=== PATIENT | female | born 1955 | race Caucasian/White ===

== ENCOUNTER → 2022-07-01 | Outpatient (CLI) | payer MEDICARE ==
--- NOTE | 2022-07-02 15:36 | MM ---
Reason for Exam: Screening (asymptomatic). Last mammogram was performed 5 year(s) and 10 month(s) ago. Patient History: Menarche at age 13. First Full-Term at age 30. Left ovary removed at age 40. Right ovary removed at age 40. Hysterectomy at age 40. Postmenopausal. Estrogen for 9 years, 5 months. Risk Values: Kavitha 5 year model risk: 1.8%. NCI Lifetime model risk: 6.9%. Prior Study Comparison: 04/26/2009 Bilateral Screening Mammogram, [facility]. 04/13/2012 Bilateral Screening Mammogram, [facility]. 09/17/2016 Bilateral Screening Mammogram, [facility]. Tissue Density: The breast tissue is almost entirely fat. Findings: Analyzed By CAD. There is no suspicious group of microcalcifications or new suspicious mass in either breast. Overall Assessment: Negative, BI-RAD 1 Management: Screening Mammogram of both breasts in 1 year. A clinical breast exam by your physician is recommended on an annual basis and results should be correlated with mammographic findings. Electronically signed and approved by: Roman Manzano DO
== END | disposition home or self-care (01) ==
LOC: RADMAMWWP 13:11
PROVIDERS: ATTEND Internal Medicine
DX: Z12.31 Encounter for screening mammogram for malignant neoplasm of breast (principal); Z78.0 Asymptomatic menopausal state
CPT/HCPCS: 77063; 77067

== ENCOUNTER 2022-10-09 07:30 | Day surgery (SDC) | payer MEDICARE ==
[2022-10-06 12:35] VITALS: BMI 29.6
--- NOTE | 2022-10-09 06:57 | P.GSHP ---
History of Present Illness H&P Date: 10/09/22 Chief Complaint: Sepsis The patient is a 66-year-old white female recently hospitalized with sepsis of urinary tract origin. She was found to have significant left hydronephrosis due to a 6 mm left UPJ calculus. Urine and blood cultures showed ESBL Klebsiella pneumoniae. She underwent left ureteral stent placement and has been treated with IV antibiotics. - Genitourinary (Female) Genitourinary: Denies dysuria, Denies flank pain, Denies hematuria Past Medical History Past Medical History: Atrial Fibrillation, Fibromyalgia, Hypertension, Rheumatoid Arthritis (RA) Additional Past Medical History / Comment(s): anemia-unknown cause-states following up with Dr Fan., Carlos-fib diagnosed January 2022., hx of kidney infection with sepsis., kidney stone. History of Any Multi-Drug Resistant Organisms: ESBL Date of last positivie culture/infection: 09/17/22 MDRO Source:: urine Past Surgical History: Section, Hysterectomy, Joint Replacement Additional Past Surgical History / Comment(s): total right knee., endometriosis surgery x2 Past Anesthesia/Blood Transfusion Reactions: No Reported Reaction Past Psychological History: No Psychological Hx Reported Smoking Status: Former smoker Past Alcohol Use History: Occasional Additional Past Alcohol Use History / Comment(s): quit smoking 26 yrs ago, hx of 1/2 ppd., started smoking age 22 Past Drug Use History: None Reported - Past Family History Mother Family Medical History: Cancer Additional Family Medical History / Comment(s): lung cancer Father Family Medical History: Cancer Additional Family Medical History / Comment(s): prostate cancer Medications and Allergies Home Medications Medication Instructions Recorded Confirmed Type Apixaban [Eliquis] 2.5 mg PO BID 10/06/22 10/06/22 History Apremilast [Otezla] 30 mg PO BID 10/06/22 10/06/22 History Ascorbic Acid [Vitamin C] 500 mg PO DAILY 10/06/22 10/06/22 History Cholecalciferol [Vitamin D3 (25 50 mcg PO DAILY 10/06/22 10/06/22 History Mcg = 1000 Iu)] Cranberry Fruit Extract [Cranberry] 8,400 mg PO DAILY 10/06/22 10/06/22 History Cyanocobalamin (Vitamin B-12) 1,000 mcg PO DAILY 10/06/22 10/06/22 History [Vitamin B-12] Ferrous Sulfate [Feosol] 325 mg PO DAILY 10/06/22 10/06/22 History Magnesium Oxide [Mag-Ox] 400 mg PO DAILY 10/06/22 10/06/22 History [place]-3/Dha/Epa/Fish Oil [Fish Oil 1 each PO DAILY 10/06/22 10/06/22 History 1,000 mg Softgel] PARoxetine [Paxil] 20 mg PO DAILY 10/06/22 10/06/22 History Potassium Chloride [Klor-Con M20] 20 meq PO DAILY 10/06/22 10/06/22 History Vit No.179/Iron/Folic 1 each PO DAILY 10/06/22 10/06/22 History [ Tablet] Turmeric Root Extract [Turmeric] 500 mg PO DIRECTED 10/06/22 10/06/22 History Zinc Gluconate [Zinc] 50 mg PO DAILY 10/06/22 10/06/22 History carvediloL [Coreg] 12.5 mg PO BID 10/06/22 10/06/22 History Allergies Allergy/AdvReac Type Severity Reaction Status Date / Time No Known Allergies Allergy Verified 10/06/22 11:56 Surgical - Exam - General well developed, well nourished, no distress - Respiratory normal respiratory effort - Abdomen Abdomen: soft, non tender, no guarding, no rigid, no rebound - Psychiatric oriented to time, oriented to person, oriented to place, speech is normal, memory intact Results - Imaging CT scan - abdomen: report reviewed, image reviewed Assessment and Plan Plan: Cystoscopy, left ureteral stent removal, left ureteroscopy with Holmium laser lithotripsy and possible stone basketing. The procedure has been reviewed in detail with the patient. She has been made aware of potential risks, which include anesthesia, bleeding, infection, inability to successfully remove the calculus, and ureteral injury.
[2022-10-09] MEDS ORDERED: LACTATED RINGERS 1,000 ML IV ONE ×2 (07:47→09:53)
[2022-10-09] MEDS ORDERED: ONDANSETRON 4 MG/2 ML VIAL ONE (07:54)
--- NOTE | 2022-10-09 08:03 | XR ---
EXAMINATION TYPE: XR KUB DATE OF EXAM: 10/09/2022 Comparison: None Clinical History: 66-year-old female presurgical evaluation for left-sided stone, LITHOTRIPSY WITH DR LYNN FOR 10/09/22 Findings: Left-sided ureteral stent is in place. Possible subtle 5 mm calcification along the proximal portion of the stent. Additional 4 mm calcification along the distal aspect of the stent. Suspect underlying right-sided renal calculi measuring up to 6 mm. Cholecystectomy clips. Nonobstructive bowel gas patte rn. Impression: Left-sided ureteral stent. Possible 5 mm calcification along the proximal aspect of the stent. Either a 4 mm phlebolith or stone along the distal aspect of the stent as well.
[2022-10-09] MEDS ORDERED: ONDANSETRON 4 MG/2 ML VIAL IVP ONE (08:07)
[2022-10-09] MEDS ORDERED: DEXAMETHASONE SOD PHOSPHATE 4 MG/ML 1 ML VIAL IVP ONE (08:08)
[2022-10-09] MEDS ORDERED: SCOPOLAMINE 1 MG/72 HR PATCH TRANSDERM ONE (08:26)
[2022-10-09] MEDS ORDERED: FAMOTIDINE 20 MG/2 ML VIAL IVP ONE (08:26)
[2022-10-09 08:36] LABS: Basophils # (A) 0.1 k/uL (0-0.2); Basophils % (A) 1 %; Eosinophils # (A) 0.2 k/uL (0-0.7); Eosinophils % (A) 3 %; HCT 33.4 % (34.0-46.0); HGB 11.3 gm/dL (11.4-16.0); Lymphocytes # (A) 1.7 k/uL (1.0-4.8); Lymphocytes % (A) 17 %; MCH 29.5 pg (25.0-35.0); MCHC 33.9 g/dL (31.0-37.0); MCV 87.1 fL (80.0-100.0); Mean Platelet Volume 7.9; Monocytes # (A) 0.4 k/uL (0-1.0); Monocytes % (A) 5 %; Neutrophils # (A) 7.1 k/uL (1.3-7.7); Neutrophils % (A) 74 %; Platelet Count 319 k/uL (150-450); RBC 3.84 m/uL (3.80-5.40); RDW 13.2 % (11.5-15.5); WBC 9.6 k/uL (3.8-10.6)
[2022-10-09] MEDS ORDERED: PHENYLEPHRINE-0.9% NACL SYG 1,000 MCG/10 ML SYRINGE ONE (08:59)
[2022-10-09] MEDS ORDERED: fentaNYL (PF) 50 MCG/ML 2 ML AMP ONE (08:59)
[2022-10-09] MEDS ORDERED: GLYCOPYRROLATE 0.2 MG/ML 2 ML VIAL ONE (08:59)
[2022-10-09] MEDS ORDERED: MIDAZOLAM 2 MG/2 ML VIAL ONE (08:59)
[2022-10-09] MEDS ORDERED: ePHEDrine 50 MG/ML 1 ML VIAL ONE (08:59)
[2022-10-09] MEDS ORDERED: PROPOFOL 10 MG/ML 20 ML VIAL IV ONE (08:59)
[2022-10-09] MEDS ORDERED: LIDOCAINE 2% INJ 20 MG/ML (2 ML VIAL) ONE (08:59)
--- NOTE | 2022-10-09 10:02 | FL ---
EXAMINATION TYPE: FL guidance operating room DATE OF EXAM: 10/09/2022 FLUOROSCOPY Fluoroscopy time of 1 seconds was used during urologic intervention for left ureteral calculus. 1 im age/s document/s the procedure.
[2022-10-09 10:25] VITALS: TEMP 96.8
--- NOTE | 2022-10-09 10:27 | P.OP ---
Date of Procedure: 10/09/22 Preoperative Diagnosis: Left Ureteral Calculus Postoperative Diagnosis: Same Procedure(s) Performed: Cystoscopy, left ureteral stent removal, left ureteroscopy with Holmium laser lithotripsy and stone basketing Anesthesia: SCARLETT Surgeon: Paulo Welsh Estimated Blood Loss (ml): 5 IV fluids (ml): 900 Pathology: other Condition: stable Disposition: PACU Indications for Procedure: The patient is a 66-year-old white female recently hospitalized with sepsis of urinary tract origin. She was found to have significant left hydronephrosis due to a 6 mm left UPJ calculus. Urine and blood cultures showed ESBL Klebsiella pneumoniae. She underwent left ureteral stent placement and has been treated with IV antibiotics. Operative Findings: Left proximal ureteral calculus, fragmented and removed completely. Description of Procedure: The patient was taken to the operating room and placed in the dorsolithotomy position, with legs supported in Kwaku stirrups. The external genitalia was prepped and draped sterilely. The 30 lens was used to introduce the 21-[place] Choi cystoscopic sheath through the urethra and into the bladder under direct vision. The bladder was examined in its entirety. No tumors or foreign bodies were seen. The right ureteral orifice appeared normal. The distal end of the left ureteral stent was grasped with grasping forceps and removed along with the cystoscope. The Choi Cobra flexible ureteroscope was advanced in the bladder, and the left ureteral orifice was cannulated. The ureteroscope was slowly advanced under direct vision, up to the left proximal ureteral calculus. The 272 micron Holmium laser probe was passed through the ureteroscope, and lithotripsy was performed. After fragmenting the calculus, or calculus fragments were removed using a 1.9-[place]ayan nitinol basket. Calculus fragments were saved and sent for chemical analysis. Upon completion of the procedure, the ureter was inspected. There was no evidence of ureteral trauma, and there were no residual calculus fragments. The ureteroscope was removed and the procedure was terminated. The patient tolerated the procedure well and was taken to the recovery room in stable condition. DALILA MAJOR Report: Procedure Acuity: Elective Stone Size and Location: 6 mm, left proximal ureter Ureteral Dilation: No Ureteral Access Sheath Used: No Stone Sent for Analysis: Yes All Stones/Fragments Were Removed with a Basket: Yes Complications: No Preoperative Antibiotics Given: Yes Stent Placed: No Discharge Medications: None
[2022-10-09 10:42] VITALS: RESP 16
[2022-10-09 11:56] VITALS: BP 147/68; PULSE 89
== END 2022-10-09 11:56 | disposition home or self-care (01) ==
LOC: OR 07:30
PROVIDERS: ATTEND Urology
DX: N13.2 Hydronephrosis with renal and ureteral calculous obstruction (principal); I48.91 Unspecified atrial fibrillation; M79.7 Fibromyalgia; I10 Essential (primary) hypertension; F10.90 Alcohol use, unspecified, uncomplicated; M06.9 Rheumatoid arthritis, unspecified; Z90.710 Acquired absence of both cervix and uterus; Z98.890 Other specified postprocedural states; Z98.891 History of uterine scar from previous surgery; Z87.891 Personal history of nicotine dependence; Z80.1 Family history of malignant neoplasm of trachea, bronchus and lung; Z80.42 Family history of malignant neoplasm of prostate; Z79.01 Long term (current) use of anticoagulants; Z79.899 Other long term (current) drug therapy
CPT/HCPCS: 85025; 82365; 74018; 52353; C1769; J2250; J1100; J0690; J2405; J3010; J2370; J2704; J2001

== ENCOUNTER → 2023-01-26 | Outpatient (CLI) | payer MEDICARE ==
[2023-01-26 16:20] LABS: Anion Gap 11.1 mmol/L (10.00-18.00); Carbon Dioxide 27.9 mmol/L (20.0-27.5); Potassium 4.8 mmol/L (3.5-5.5)
[2023-01-26 17:01] LABS: Basophils # (A) 0.03 X 10*3/uL (0.00-0.10); Basophils % (A) 0.4 %; Eosinophils # (A) 0.12 X 10*3/uL (0.04-0.35); Eosinophils % (A) 1.6 %; HCT 36.5 % (37.2-46.3); HGB 11.6 g/dL (12.0-15.0); Immature Grans, Automated 0.3 %; Lymphocytes # (A) 1.66 X 10*3/uL (0.90-5.00); Lymphocytes % (A) 21.6 %; MCH 28.8 pg (27.0-32.0); MCHC 31.8 g/dL (32.0-37.0); MCV 90.6 fL (80.0-97.0); Mean Platelet Volume 10.7 fL (9.5-12.2); Monocytes # (A) 0.58 X 10*3/uL (0.20-1.00); Monocytes % (A) 7.6 %; NRBC Per 100 WBC 0 /100 WBCS (0.0-0.0); Neutrophils # (A) 5.26 X 10*3/uL (1.80-7.70); Neutrophils % (A) 68.5 %; Platelet Count 247 X 10*3/uL (140-440); RBC 4.03 X 10*6/uL (4.10-5.20); RDW 13.1 % (11.5-14.5); WBC 7.67 X 10*3/uL (4.50-10.00)
== END | disposition home or self-care (01) ==
LOC: LABPAT 11:45
PROVIDERS: ATTEND Orthopaedic Surgery
DX: Z01.812 Encounter for preprocedural laboratory examination (principal); M75.42 Impingement syndrome of left shoulder
CPT/HCPCS: 80051; 85025

== ENCOUNTER 2023-02-02 10:41 | Day surgery (SDC) | payer MEDICARE ==
--- NOTE | 2023-02-01 13:09 | HP ---
HISTORY AND PHYSICAL DATE OF SURGERY: 02/02/2023 HISTORY OF PRESENT ILLNESS: Maikol Alexander is a 67-year-old patient seen with progressive left shoulder pain. We discussed options for treatment. She elected to proceed with left shoulder arthroscopy. Consent regarding the procedure was obtained. PAST MEDICAL HISTORY: Hypertension, [id number] diabetes. PAST SURGICAL HISTORY: Knee arthroscopy. DAILY MEDICATIONS: Eliquis. ALLERGIES: None. SOCIAL HISTORY: She denies tobacco use. PHYSICAL EVALUATION OF LEFT SHOULDER: Flexion is 90 degrees, abduction is 80 degrees. External rotation is 40 degrees with pain and weakness. Tenderness along the anterolateral rotator cuff area. Impingement sign is positive at 80 degrees. Drop-arm sign is positive. Distal neurovascular exam is intact. RADIOGRAPHS: Left shoulder revealed a type 2 acromion, moderate acromioclavicular joint osteoarthritis and cystic changes of the tuberosity. The left shoulder MRI revealed rotator cuff tear, partial biceps tear, labral tear, and moderate acromioclavicular joint osteoarthritis. IMPRESSION: 1. Left shoulder impingement with rotator cuff tear. 2. Left shoulder partial long head biceps tendon tear. 3. Left shoulder labral tear. 4. Left shoulder acromioclavicular joint osteoarthritis. 5. Hypertension. 6. Btu-vmbywsl-ghrbfmkak diabetes. PLAN: Left shoulder arthroscopy with subacromial decompression, arthroscopic rotator cuff repair, biceps tendon release, Dori procedure and debridement. MMODL / IJN: [id number] /
[~2023-02-02 10:41] MED LIST: ACETAMINOPHEN TAB 500 MG TAB PO PRN; DEXAMETHASONE SOD PHOSPHATE 4 MG/ML 1 ML VIAL IV ONE; HYDROmorphone 0.5 MG/0.5 ML SYRINGE IVP PRN; LACTATED RINGERS 1,000 ML IV SCH; MELOXICAM 7.5 MG TAB PO PRN; MIDAZOLAM 2 MG/2 ML VIAL IV PRN; ONDANSETRON 4 MG/2 ML VIAL IVP ONE; TRANEXAMIC ACID IN NACL,ISO-OS 1,000 MG in SALINE 1 100ML.BAG IVPB PRN
[2023-02-02 11:12] VITALS: RESP 16; TEMP 97.5
[2023-02-02 11:21] LABS: Glucose,Whole Blood 125 mg/dL (70-110)
[2023-02-02] MEDS ORDERED: fentaNYL (PF) 50 MCG/ML 2 ML AMP IVP ONE (11:47)
[2023-02-02] MEDS ORDERED: LIDOCAINE 2% INJ 20 MG/ML (2 ML VIAL) ONE (12:30)
[2023-02-02] MEDS ORDERED: ePHEDrine 50 MG/ML 1 ML VIAL ONE (12:30)
[2023-02-02] MEDS ORDERED: PROPOFOL 10 MG/ML 20 ML VIAL IV ONE (12:30)
[2023-02-02] MEDS ORDERED: MIDAZOLAM 2 MG/2 ML VIAL ONE (12:30)
[2023-02-02] MEDS ORDERED: ROPIVACAINE 5 MG/ML 30 ML VIAL ONE (12:30)
[2023-02-02] MEDS ORDERED: fentaNYL (PF) 50 MCG/ML 2 ML AMP ONE (12:30)
[2023-02-02] MEDS ORDERED: LIDOCAINE 4% LTA KIT (4 ML) TOPICAL ONE (12:30)
[2023-02-02] MEDS ORDERED: SUCCINYLCHOLINE CHLORIDE 200 MG/10 ML VIAL IV ONE (12:30)
[2023-02-02] MEDS ORDERED: LACTATED RINGERS 1,000 ML IV ONE (14:01)
--- NOTE | 2023-02-02 14:08 | P.ANPRN ---
Procedure Note - Anesthesia - Nerve Block Performed Left Interscalene Single Time Out Performed: Yes ([id number]) Date of Procedure: 02/02/23 Procedure Start Time: 11:47 Procedure Stop Time: 11:52 Location of Patient: PreOp Indication: Acute Post-Operative Pain, Requested by Surgeon Specifically requested for management of pain by DrAlicja: Jason Mack Sedation Type: Sedate with meaningful contact maintained Preparation: Sterile Prep Position: Supine Catheter: None Needle Types: Pajunk Needle Gauge: 21 Ultrasound used to visualize needle placement: Yes Ultrasound used to observe medication spread: Yes Injectate: 0.5% Ropivacaine (see comment for volume) (30cc) Blood Aspirated: No Pain Paresthesia on Injection Noted: No Resistance on Injection: Normal Image Stored and Saved: Yes Events: Uneventful and Well Tolerated
--- NOTE | 2023-02-02 14:33 | P.OP ---
Date of Procedure: 02/02/23 Preoperative Diagnosis: Left shoulder impingement Postoperative Diagnosis: 1. Left shoulder rotator cuff tear 2. Left shoulder impingement 3. Left shoulder acromioclavicular joint osteoarthritis 4. Left shoulder partial long head biceps tendon tear Procedure(s) Performed: 1. Left shoulder arthroscopic rotator cuff repair 2. Left shoulder arthroscopic subacromial decompression 3. Left shoulder arthroscopic Dori procedure 4. Left shoulder arthroscopic biceps tenotomy Implants: 4Arthrex 5.5 swivel lock anchors Anesthesia: GETA, regional (Interscalene block) Surgeon: Jason Mack Rice Drier Operator #1: Randy Ordonez Estimated Blood Loss (ml): 7 Pathology: none sent Condition: stable Disposition: PACU Indications for Procedure: 67-year-old patient seen with progressive left shoulder pain. After having treatment options discussed, she elected to proceed with arthroscopy Operative Findings: See description of procedure Description of Procedure: Patient underwent an interscalene block by department of anesthesia. The patient was then taken to the operative suite. The patient underwent a general anesthetic by the department of anesthesia. The patient was placed into a lateral position and secured. There was appropriate padding of the bony prominence. Left shoulder was then prepped and draped in normal sterile orthopedic fashion. We placed the extremity in 10 pounds of longitudinal traction. A posterior incision was now made for a posterior working portal site. The trocar and cannula were inserted into the glenohumeral joint. Arthroscopy was initiated. Spinal needle was now inserted anteriorly, to ascertain the anterior working portal site. An incision was now made in that area, a trocar was inserted followed by a probe. There was significant partial tearing of the long head biceps tendon. There were grade 1/2 chondromalacia changes in the central area of the glenoid fossa without significant tears. The labrum was probed and was found to be stable. I performed an arthroscopic biceps tenotomy. The residual labrum was again probed and was found to be stable. Instruments now removed from glenohumeral joint. Utilizing the posterior working portal site, the trocar and cannula were inserted into the subacromial space. Arthroscopy initiated. I made an incision 2 fingerbreadths lateral to the acromion. I introduced my trocar followed by my ArthroCare ablator. I now began ablating thick subacromial bursal tissue, which exposed the undersurface of the anterior acromion. There was diminished subacromial space. There was a very prominent anterior acromion. A motorized bur was introduced and a subacromial decompression was performed. I also excised some osteophytes off the inferior aspect of the distal clavicle. The AC joint was visualized and noted to be fairly arthritic. The motorized bur was introduced in the anterior portal site and a Dori procedure was performed without difficulty, decompressing the AC joint nicely. I turned my attention to the rotator cuff. There was a 2.53 cm rotator cuff tear. I debrided the margins getting down to stable tendon tissue. The defect measured approximately 3 cm and was freely mobile over the footprint. I introduced my motorized bur and abraded the footprint area, getting some petechial bleeding. I now made an accessory portal site off the lateral aspect of the acromion. I punched 2 holes medial for medial row fixation with the assistance of Julius LEA carefully tapping the punch with a mallet as I held the punch and the camera. I now introduced both anchors into the pre-punched holes and Julius LEA tapped them with the mallet as I held anchors and the camera. Julius LEA now screwed the anchors in place a while I held the anchor guide and camera. All 8 limbs of suture were now passed through good bites of rotator cuff tendon. I now punched 2 holes for lateral row fixation again I held the punch and camera while Julius LEA used a mallet to tap in the punch. We now passed sutures through both anchors and individually I introduced the anchors into the pre- punch holes I held the anchor guide in position with one hand holding the camera with the other hand while Julius LEA tensioned the sutures and screwed in the anchors one at a time. All residual suture limbs were now clipped. We had good compression of the tendon along the entire footprint. Instruments now removed from the portal sites. All portal sites were approximated with nylon suture. Sterile dressings were applied followed by a shoulder immobilizer. Randy LEA assisted in this complex case. The patient was awakened, transferred to a bed, and taken to recovery in stable condition.
[2023-02-02 15:59] VITALS: BP 173/80; PULSE 71
== END 2023-02-02 16:23 | disposition home or self-care (01) ==
LOC: OR 10:41
PROVIDERS: ATTEND Orthopaedic Surgery
DX: M75.102 Unspecified rotator cuff tear or rupture of left shoulder, not specified as traumatic (principal); G89.18 Other acute postprocedural pain; M19.012 Primary osteoarthritis, left shoulder; M75.42 Impingement syndrome of left shoulder; S46.112A Strain of muscle, fascia and tendon of long head of biceps, left arm, initial encounter; I10 Essential (primary) hypertension; E11.9 Type 2 diabetes mellitus without complications; Z79.01 Long term (current) use of anticoagulants; Z98.890 Other specified postprocedural states
CPT/HCPCS: 29827; 29826; 29824; 64415; J2250; J1100; J0690; J2405; J3010; 76942

== ENCOUNTER → 2023-08-25 | Outpatient (CLI) | payer MEDICARE ==
[2023-08-25 15:52] LABS: Basophils # (A) 0.03 X 10*3/uL (0.00-0.10); Basophils % (A) 0.4 %; Eosinophils # (A) 0.18 X 10*3/uL (0.04-0.35); Eosinophils % (A) 2.7 %; HCT 40.1 % (37.2-46.3); Lymphocytes # (A) 1.57 X 10*3/uL (0.90-5.00); Lymphocytes % (A) 23.3 %; MCH 29.1 pg (27.0-32.0); MCHC 32.4 d/dL (32.0-37.0); MCV 89.7 FL (80.0-97.0); Mean Platelet Volume 10.6 FL (9.5-12.2); Monocytes # (A) 0.48 X 10*3/uL (0.20-1.00); Monocytes % (A) 7.1 %; NRBC Per 100 WBC 0 X 10*3/uL (0.00-0.01); Neutrophils # (A) 4.47 X 10*3/uL (1.80-7.70); Neutrophils % (A) 66.2 %; Platelet Count 285 X 10*3/uL (140-440); RBC 4.47 X 10*6/uL (4.10-5.20); RDW 13.8 % (11.5-14.5); WBC 6.75 X 10*3/uL (4.50-10.00)
[2023-08-25 16:00] LABS: ALT 18 U/L (8-44); AST 17 U/L (13-35); Albumin 4.9 d/dL (3.8-4.9); Albumin/Globulin Ratio 1.81 Ratio (1.60-3.17); Alkaline Phosphatase 87 U/L (41-126); Blood Urea Nitrogen 17.8 mg/dL (9.0-27.0); Calcium 10.5 mg/dL (8.7-10.3); Carbon Dioxide 26.7 mmol/L (21.6-31.8); Chloride 98 mmol/L (96-109); Chol/HDL Ratio 2.82 Ratio; Globulin 2.7 d/dL (1.6-3.3); Glucose 115 mg/dL (70-110); LDL Cholesterol,Calculated 79.6 mg/dL (0.0-131.0); Potassium 5.5 mmol/L (3.5-5.5); Sodium 137 mmol/L (135-145); Total Bilirubin 0.4 mg/dL (0.3-1.2); Total Protein 7.6 d/dL (6.2-8.2)
== END | disposition home or self-care (01) ==
LOC: LABWHC1 10:48
PROVIDERS: ATTEND Family Medicine
DX: E78.5 Hyperlipidemia, unspecified (principal)
CPT/HCPCS: 36415; 80053; 80061; 83036; 84443; 85025

== ENCOUNTER → 2023-09-29 | Outpatient (CLI) | payer MEDICARE ==
--- NOTE | 2023-09-30 16:02 | MM ---
Reason for Exam: Screening (asymptomatic). Last mammogram was performed 1 year(s) and 3 month(s) ago. Patient History: Menarche at age 13. First Full-Term at age 30. Left ovary removed at age 40. Right ovary removed at age 40. Hysterectomy at age 40. Postmenopausal. Estrogen for 9 years, 5 months. Risk Values: Kavitha 5 year model risk: 1.9%. NCI Lifetime model risk: 6.7%. Prior Study Comparison: 04/13/2012 Bilateral Screening Mammogram, [facility]. 09/17/2016 Bilateral Screening Mammogram, [facility]. 07/01/2022 Bilateral MG 3D screening mammo w/cad, [facility]. Tissue Density: There are scattered fibroglandular densities. Findings: Analyzed By CAD. Pattern appears symmetrical and stable. No significant interval change is evident. Scattered benign punctate calcifications are scattered bilaterally. No suspicious groups of microcalcifications, spiculated or lobular masses, architectural distortion or other secondary signs of malignancy are mammographically apparent. Overall Assessment: Benign, BI-RAD 2 Management: Screening Mammogram of both breasts in 1 year. A negative mammogram report should not preclude additional follow up of suspicious palpable abnormalities. Patient should continue monthly self breast exam. A clinical breast exam by your physician is recommended on an annual basis and results should be correlated with mammographic findings. Electronically signed and approved by: Terence Nieves D.O. Radiologis
== END | disposition home or self-care (01) ==
LOC: RADMAMWWP 14:35
PROVIDERS: ATTEND Family Medicine
DX: Z12.31 Encounter for screening mammogram for malignant neoplasm of breast (principal); Z78.0 Asymptomatic menopausal state
CPT/HCPCS: 77063; 77067

== ENCOUNTER → 2024-01-05 | Outpatient (CLI) | payer MEDICARE ==
--- NOTE | 2024-01-05 16:57 | US ---
EXAMINATION TYPE: US kidneys/renal and bladder DATE OF EXAM: 01/05/2024 COMPARISON: NONE CLINICAL INDICATION: Female, 68 years old with history of N39.0 URINARY TRACT INFECTION, SITE NOT SPE CIFIED; Frequent UTIs. No other pain or symptoms. EXAM MEASUREMENTS: Right Kidney: 10.7 x 6.3 x 5.1 cm Left Kidney: 11.5 x 5.2 x 4.7 cm *Limited due to overlying bowel gas Right Kidney: There are multiple cystic structures located within the right kidney, largest is mid an d measures 3.1 x 2.5 x 3.3cm. Left Kidney: Lobulated borders. No hydronephrosis or masses seen as best visualized today. Bladder: Unable to thoroughly evaluate due to prep instructions not given to patient. Bilateral Jets seen: No IMPRESSION: 1. Multiple cystic structures within the right kidney measuring up to 3.3 cm. 2. No evidence for obstructive uropathy.
== END | disposition home or self-care (01) ==
LOC: RADUSWWP 13:23
PROVIDERS: ATTEND Internal Medicine Infectious Disease
DX: N28.1 Cyst of kidney, acquired (principal); N39.0 Urinary tract infection, site not specified
CPT/HCPCS: 76770

== ENCOUNTER → 2024-05-16 | Outpatient (CLI) | payer MEDICARE ==
--- NOTE | 2024-05-17 07:27 | XR ---
EXAMINATION TYPE: XR shoulder limited RT DATE OF EXAM: 05/16/2024 CLINICAL HISTORY: pain TECHNIQUE: 2 views of the right shoulder are obtained. COMPARISON: None FINDINGS: There is no acute fracture/dislocation evident. The acromioclavicular and glenohumeral mohan int spaces appear mildly narrowed. The visualized ribs are intact and unremarkable. IMPRESSION: 1. There is no acute fracture or dislocation. ICD 10 NO FRACTURE, INITIAL EVALUATION
== END | disposition home or self-care (01) ==
LOC: RADXRMAIN 14:54
PROVIDERS: ATTEND Orthopaedic Surgery
DX: M25.511 Pain in right shoulder (principal)

== ENCOUNTER 2024-07-23 11:46 | Emergency (ER) | payer MEDICARE ==
[2024-07-23] MEDS: SODIUM CHLORIDE 0.9% 500 ML 500 ML IV STA (12:32)
[2024-07-23] MEDS: ONDANSETRON 4 MG/2 ML VIAL IVP STA (12:33)
[2024-07-23] MEDS: HYDROmorphone 1 MG/ML 1 ML SYRINGE IVP STA (12:36)
--- NOTE | 2024-07-23 12:37 | ED ---
General Adult HPI - General Chief complaint: Abdominal Pain Stated complaint: Abdominal Pain Time Seen by Provider: 07/23/24 12:00 Source: patient, RN notes reviewed, old records reviewed Mode of arrival: ambulatory - History of Present Illness Initial comments: 68-year-old female presenting with right flank pain. Patient has prior history of both kidney stones and pyelonephritis. She has had nausea without vomiting. No fever. Pain does travel to the right upper quadrant. She reports previous cholecystectomy and appendectomy. - Related Data Home Medications Medication Instructions Recorded Confirmed Apixaban [Eliquis] 2.5 mg PO BID 10/06/22 01/27/23 Apremilast [Otezla] 30 mg PO DAILY 10/06/22 01/27/23 Ascorbic Acid [Vitamin C] 500 mg PO DAILY 10/06/22 01/27/23 Cholecalciferol [Vitamin D3 (25 50 mcg PO DAILY 10/06/22 01/27/23 Mcg = 1000 Iu)] Cranberry Fruit Extract [Cranberry] 8,400 mg PO DAILY 10/06/22 01/27/23 Cyanocobalamin (Vitamin B-12) 500 mcg PO DAILY 10/06/22 01/27/23 [Vitamin B-12] Ferrous Sulfate [Feosol] 325 mg PO DAILY 10/06/22 01/27/23 [place]-3/Dha/Epa/Fish Oil [Fish Oil 1 each PO DAILY 10/06/22 01/27/23 1,000 mg Softgel] PARoxetine [Paxil] 20 mg PO DAILY 10/06/22 01/27/23 Vit No.179/Iron/Folic 1 each PO DAILY 10/06/22 01/27/23 [ Tablet] Turmeric Root Extract [Turmeric] 500 mg PO DIRECTED 10/06/22 01/27/23 Zinc Gluconate [Zinc] 50 mg PO DAILY 10/06/22 01/27/23 carvediloL [Coreg] 12.5 mg PO BID 10/06/22 01/27/23 Acetaminophen [Tylenol Extra 500 mg PO DIRECTED PRN 01/27/23 01/27/23 Strength] Potassium Citrate [Potassium 20 meq PO TID 01/27/23 01/27/23 Citrate ER] Rosuvastatin Calcium 5 mg PO DAILY 01/27/23 01/27/23 Unk Pantoprazole 40 mg PO DAILY 01/27/23 01/27/23 Previous Rx's Medication Instructions Recorded HYDROcodone/APAP 7.5-325MG [[place] 1 tab PO Q6HR PRN #28 tab 02/02/23 7.5-325] HYDROcodone/APAP 5-325MG [[place] 1 tab PO Q6HR PRN #12 tab 07/23/24 5-325] Nitrofurantoin Monohyd/M-Cryst 100 mg PO Q12HR 7 Days #14 cap 07/23/24 [Macrobid] Allergies Allergy/AdvReac Type Severity Reaction Status Date / Time No Known Allergies Allergy Verified 07/23/24 11:57 Review of Systems ROS Statement: Those systems with pertinent positive or pertinent negative responses have been documented in the HPI. ROS Other: All systems not noted in ROS Statement are negative. Past Medical History Past Medical History: Atrial Fibrillation, Fibromyalgia, Hypertension, Rheumatoid Arthritis (RA) Additional Past Medical History / Comment(s): anemia-unknown cause-states following up with Dr Fan., A-fib diagnosed January 2022., hx of kidney infection with sepsis., kidney stone. History of Any Multi-Drug Resistant Organisms: ESBL Date of last positivie culture/infection: 09/17/22 MDRO Source:: urine Past Surgical History: Section, Hysterectomy, Joint Replacement Additional Past Surgical History / Comment(s): total right knee., endometriosis surgery x2 Past Anesthesia/Blood Transfusion Reactions: No Reported Reaction Past Psychological History: No Psychological Hx Reported Smoking Status: Former smoker Past Alcohol Use History: None Reported Past Drug Use History: None Reported - Past Family History Mother Family Medical History: Cancer Additional Family Medical History / Comment(s): lung cancer Father Family Medical History: Cancer Additional Family Medical History / Comment(s): prostate cancer General Exam General appearance: alert, in no apparent distress Head exam: Present: atraumatic, normocephalic Eye exam: Present: normal appearance, PERRL ENT exam: Present: normal exam Neck exam: Present: normal inspection Respiratory exam: Present: normal lung sounds bilaterally. Absent: respiratory distress, wheezes Cardiovascular Exam: Present: regular rate, normal rhythm GI/Abdominal exam: Present: soft, tenderness. Absent: distended, guarding Extremities exam: Present: normal capillary refill Back exam: Present: CVA tenderness (R) Neurological exam: Present: alert, oriented X3 Psychiatric exam: Present: normal affect, normal mood Course Vital Signs 07/23/24 07/23/24 11:53 13:58 Temperature 97.7 F Pulse Rate 92 71 Respiratory 18 20 Rate Blood Pressure 135/81 167/87 O2 Sat by Pulse 100 97 Oximetry Medical Decision Making - Medical Decision Making Was pt. sent in by a medical professional or institution (, LEONORA, HUMAN RESOURCES BENEFITS ASSISTANT, urgent care, hospital, or alf...) When possible be specific @ -No Did you speak to anyone other than the patient for history (EMS, parent, family, police, friend...)? What history was obtained from this source @ -No Did you review nursing and triage notes (agree or disagree)? Why? @ -I reviewed and agree with nursing and triage notes Were old charts reviewed (outside hosp., previous admission, EMS record, old EKG, old radiological studies, urgent care reports/EKG's, alf records)? Report findings @ -No old charts were reviewed Differential Abdominal Pain Women: Appendicitis, Cholecystitis, diverticulosis, ischemic bowel, pancreatitis, hepatitis, UTI, gastroenteritis, AAA, incarcerated hernia, bowel obstruction, constipation, inflammatory bowel, hepatitis, peptic ulcer disease, splenic infarction, perforated viscus, vulvitis, ovarian torsion, PID, kidney stone, placenta abruption, this is not meant to be an all-inclusive list EKG interpreted by me (3pts min.). @ -As above X-rays interpreted by me (1pt min.). @ -None done CT interpreted by me (1pt min.). @ -CT abdomen pelvis without contrast, negative for acute process U/S interpreted by me (1pt. min.). @ -None done What testing was considered but not performed or refused? (CT, X-rays, U/S, labs)? Why? @ -None What meds were considered but not given or refused? Why? @ -None Did you discuss the management of the patient with other professionals (professionals i.e. LEONORA Banda, HUMAN RESOURCES BENEFITS ASSISTANT, lab, RT, psych nurse, social services specialist, railway equipment operator, teacher, water resources technical officer, family service caseworker)? Give summary @ -No Was smoking cessation discussed for >3mins.? @ -No Was critical care preformed (if so, how long)? @ -No Were there social determinants of health that impacted care today? How? (Homelessness, low income, unemployed, alcoholism, drug addiction, transpo rtation, low edu. Level, literacy, decrease access to med. care, [facility], rehab)? @ -No Was there de-escalation of care discussed even if they declined (Discuss DNR or withdrawal of care, Hospice)? DNR status @ -No What co-morbidities impacted this encounter? (DM, HTN, Smoking, COPD, CAD, Cancer, CVA, ARF, Chemo, Hep., AIDS, mental health diagnosis, sleep apnea, morbid obesity)? @ -[History of recurrent UTI Was patient admitted / discharged? Hospital course, mention meds given and route, prescriptions, significant lab abnormalities, going to OR and other pertinent info. @ -68-year-old female with right flank pain. Patient well-appearing with stable vitals. She has right flank and right upper quadrant abdominal pain. She is status post cholecystectomy in the remote past. No fever. Urinalysis is contaminated but does show rare bacteria. Urine culture is obtained and pending. Patient has normal CBC without leukocytosis, normal electrolytes, normal lactic acid. Patient will be given symptomatic treatment awaiting culture results. Started on nitrofurantoin awaiting urine culture. Undiagnosed new problem with uncertain prognosis? @ -No Drug Therapy requiring intensive monitoring for toxicity (Heparin, Nitro, Insulin, Cardizem)? @ -No Were any procedures done? @ -No Diagnosis/symptom? @ -[Flank pain Acute, or Chronic, or Acute on Chronic? @ -Acute Uncomplicated (without systemic symptoms) or Complicated (systemic symptoms)? @ -Default Side effects of treatment? @ -No Exacerbation, Progression, or Severe Exacerbation? @ -No Poses a threat to life or bodily function? How? (Chest pain, [place], [place], pneumonia, PE, COPD, DKA, ARF, appy, cholecystitis, CVA, Diverticulitis, Homicidal, Suicidal, threat to staff... and all critical care pts) @ -[Low risk at this time - Lab Data Result diagrams: 07/23/24 12:20 07/23/24 12:20 Lab Results 07/23/24 07/23/24 07/23/24 Range/Units 12:20 12:20 12:20 WBC 8.6 (3.8-10.6) k/uL RBC 4.64 (3.80-5.40) m/uL Hgb 13.4 (11.4-16.0) gm/dL Hct 41.5 (34.0-46.0) % MCV 89.5 (80.0-100.0) fL MCH 28.9 (25.0-35.0) pg MCHC 32.3 (31.0-37.0) g/dL RDW 13.2 (11.5-15.5) % Plt Count 280 (150-450) k/uL MPV 7.5 Neutrophils % 76 % Lymphocytes % 15 % Monocytes % 6 % Eosinophils % 2 % Basophils % 0 % Neutrophils # 6.5 (1.3-7.7) k/uL Lymphocytes # 1.3 (1.0-4.8) k/uL Monocytes # 0.5 (0-1.0) k/uL Eosinophils # 0.2 (0-0.7) k/uL Basophils # 0.0 (0-0.2) k/uL PT 10.6 (10.0-12.5) sec INR 1.0 (<1.2) APTT 28.8 (22.0-30.0) sec Sodium (137-145) mmol/L Potassium (3.5-5.1) mmol/L Chloride (98-107) mmol/L Carbon Dioxide (22-30) mmol/L Anion Gap mmol/L BUN (7-17) mg/dL Creatinine (0.52-1.04) mg/dL Est GFR (CKD-EPI)AfAm (>60 ml/min/1.73 sqM) Est GFR (CKD-EPI)NonAf (>60 ml/min/1.73 sqM) Glucose (74-99) mg/dL Plasma Lactic Acid Sonny (0.7-2.0) mmol/L Calcium (8.4-10.2) mg/dL Total Bilirubin (0.2-1.3) mg/dL AST (14-36) U/L ALT (4-34) U/L Alkaline Phosphatase (38-126) U/L Total Protein (6.3-8.2) g/dL Albumin (3.5-5.0) g/dL Lipase (23-300) U/L Urine Color Yellow Urine Appearance Cloudy H (Clear) Urine pH 5.5 (5.0-8.0) Ur Specific [place] 1.028 (1.001-1.035) Urine Protein 1+ H (Negative) Urine Glucose (UA) Negative (Negative) Urine Ketones Negative (Negative) Urine Blood Negative (Negative) Urine Nitrite Negative (Negative) Urine Bilirubin Negative (Negative) Urine Urobilinogen <2.0 (<2.0) mg/dL Ur Leukocyte Esterase Moderate H (Negative) Urine RBC 3 (0-5) /hpf Urine WBC 44 H (0-5) /hpf Ur Squamous Epith Cells 17 H (0-4) /hpf Urine Bacteria Many H (None) /hpf Urine Mucus Few H (None) /hpf 07/23/24 07/23/24 Range/Units 12:20 12:20 WBC (3.8-10.6) k/uL RBC (3.80-5.40) m/uL Hgb (11.4-16.0) gm/dL Hct (34.0-46.0) % MCV (80.0-100.0) fL MCH (25.0-35.0) pg MCHC (31.0-37.0) g/dL RDW (11.5-15.5) % Plt Count (150-450) k/uL MPV Neutrophils % % Lymphocytes % % Monocytes % % Eosinophils % % Basophils % % Neutrophils # (1.3-7.7) k/uL Lymphocytes # (1.0-4.8) k/uL Monocytes # (0-1.0) k/uL Eosinophils # (0-0.7) k/uL Basophils # (0-0.2) k/uL PT (10.0-12.5) sec INR (<1.2) APTT (22.0-30.0) sec Sodium 138 (137-145) mmol/L Potassium 4.5 (3.5-5.1) mmol/L Chloride 99 (98-107) mmol/L Carbon Dioxide 26 (22-30) mmol/L Anion Gap 13 mmol/L BUN 18 H (7-17) mg/dL Creatinine 0.94 (0.52-1.04) mg/dL Est GFR (CKD-EPI)AfAm 73 (>60 ml/min/1.73 sqM) Est GFR (CKD-EPI)NonAf 63 (>60 ml/min/1.73 sqM) Glucose 181 H (74-99) mg/dL Plasma Lactic Acid Sonny 1.4 (0.7-2.0) mmol/L Calcium 10.3 H (8.4-10.2) mg/dL Total Bilirubin 0.8 (0.2-1.3) mg/dL AST 22 (14-36) U/L ALT 15 (4-34) U/L Alkaline Phosphatase 80 (38-126) U/L Total Protein 7.9 (6.3-8.2) g/dL Albumin 4.8 (3.5-5.0) g/dL Lipase 82 (23-300) U/L Urine Color Urine Appearance (Clear) Urine pH (5.0-8.0) Ur Specific [place] (1.001-1.035) Urine Protein (Negative) Urine Glucose (UA) (Negative) Urine Ketones (Negative) Urine Blood (Negative) Urine Nitrite (Negative) Urine Bilirubin (Negative) Urine Urobilinogen (<2.0) mg/dL Ur Leukocyte Esterase (Negative) Urine RBC (0-5) /hpf Urine WBC (0-5) /hpf Ur Squamous Epith Cells (0-4) /hpf Urine Bacteria (None) /hpf Urine Mucus (None) /hpf Disposition Clinical Impression: Flank pain Disposition: HOME SELF-CARE Condition: Fair Instructions (If sedation given, give patient instructions): Flank Pain (ED) Prescriptions: Nitrofurantoin Monohyd/M-Cryst [Macrobid] 100 mg PO Q12HR 7 Days #14 cap HYDROcodone/APAP 5-325MG [[place] 5-325] 1 tab PO Q6HR PRN #12 tab PRN Reason: Pain Is patient prescribed a controlled substance at d/c from ED?: No Referrals: Lalo Hawkins MD [Primary Care Provider] - 1-2 days Time of Disposition: 14:11
[2024-07-23 12:54] LABS: Basophils % (A) 0 %; Eosinophils # (A) 0.2 k/uL (0-0.7); Eosinophils % (A) 2 %; HCT 41.5 % (34.0-46.0); HGB 13.4 gm/dL (11.4-16.0); Lymphocytes # (A) 1.3 k/uL (1.0-4.8); Lymphocytes % (A) 15 %; MCH 28.9 pg (25.0-35.0); MCHC 32.3 g/dL (31.0-37.0); MCV 89.5 fL (80.0-100.0); Mean Platelet Volume 7.5; Monocytes # (A) 0.5 k/uL (0-1.0); Monocytes % (A) 6 %; Neutrophils # (A) 6.5 k/uL (1.3-7.7); Neutrophils % (A) 76 %; Platelet Count 280 k/uL (150-450); RBC 4.64 m/uL (3.80-5.40); RDW 13.2 % (11.5-15.5); WBC 8.6 k/uL (3.8-10.6)
[2024-07-23 13:03] LABS: ALT 15 U/L (4-34); AST 22 U/L (14-36); African American GFR (CKD) 73 (>60 ml/min/1.73 sqM); Albumin 4.8 g/dL (3.5-5.0); Alkaline Phosphatase 80 U/L (38-126); Anion Gap 13 mmol/L; Blood Urea Nitrogen 18 mg/dL (7-17); Calcium 10.3 mg/dL (8.4-10.2); Carbon Dioxide 26 mmol/L (22-30); Chloride 99 mmol/L (98-107); Glucose 181 mg/dL (74-99); Lipase 82 U/L (23-300); Non-African American GFR(CKD) 63 (>60 ml/min/1.73 sqM); Potassium 4.5 mmol/L (3.5-5.1); Sodium 138 mmol/L (137-145); Total Bilirubin 0.8 mg/dL (0.2-1.3); Total Protein 7.9 g/dL (6.3-8.2)
[2024-07-23 13:30] LABS: Partial Thromboplastin Time 28.8 sec (22.0-30.0); Prothrombin Time 10.6 sec (10.0-12.5)
[2024-07-23 13:38] LABS: Appearance,Urine Cloudy (Clear); Bacteria,Urine Many /hpf; Bilirubin,Urine Negative (Negative); Blood,Urine Negative (Negative); Color,Urine Yellow; Glucose,Urine (UA) Negative (Negative); Ketones,Urine Negative (Negative); Leukocyte Esterase,Urine Moderate (Negative); Mucus,Urine Few /hpf; Nitrite,Urine Negative (Negative); PH, Urine 5.5 (5.0-8.0); Protein,Urine 1+ (Negative); RBC,Urine 3 /hpf (0-5); Specific Gravity,Urine 1.028 (1.001-1.035); Squamous Epithelial Cell,Urine 17 /hpf (0-4); Urobilinogen,Urine <2.0 mg/dL (<2.0); WBC,Urine 44 /hpf (0-5)
--- NOTE | 2024-07-23 13:49 | CT ---
EXAMINATION TYPE: CT abdomen pelvis wo con DATE OF EXAM: 07/23/2024 COMPARISON: None INDICATION: Right flank pain DLP: 637 mGycm, Automated exposure control for dose reduction was used. CONTRAST: 0 mL of Isovue 300. Study performed without Oral Contrast TECHNIQUE: Axial images were obtained from above the diaphragm to the pubic rami in the axial plane a t 5 mm thick sections. Reconstructed images are reviewed on the computer in the coronal plane. FINDINGS: Limited CT sections are obtained the lung bases. The lung bases are clear. CT ABDOMEN: Within the lateral right flank between the oblique rectus abdominis muscles there is a fa t type structure. Consider lipoma. Communication with the intraperitoneal region is not identified to suggest mesenteric hernia. Liver: Normal Spleen: Normal calcified vascular hilum is evident. Pancreas: Normal Adrenal glands: The adrenal glands are normal. Gallbladder: Surgically absent Kidneys: No masses are evident. No hydronephrosis is present. There is intermediate density cyst me asuring 25 Hounsfield units on the posterior lateral mid right kidney measuring 2.8 cm in size. Addit ional lateral right renal cyst is present measuring 3.5 cm at the inferior pole measuring 1.6 cm. Lef t kidney appears somewhat atrophic in relation to the right. Aorta: Vascular calcification is within the aorta. Inferior vena cava: Normal. CT PELVIS: Loops of bowel within the abdomen and pelvis are normal. This study is lateral contrast limiting bowel evaluation. Appendix: Not identified. No dilated tubular structure or inflammatory change is evident. Clinical m anagement of any suspected appendicitis will be required. Urinary bladder: Partially decompressed but otherwise unremarkable Genitourinary structures: Uterus and ovaries are not identified. No free fluid is within the pelvis. Osseous structures: No suspicious lytic or sclerotic lesions. Facet degenerative changes are present. IMPRESSION: 1. Appears to be a fat density structure along the right lateral flank to muscular layers suggestive for underlying lipoma. Correlate with the location of the patient's flank pain. 2. No suspicious abnormality suggest renal stone or hydronephrosis. 3. The appendix is not identified, no secondary signs to suggest acute appendicitis. [facility], Workstation: [facility], 07/23/2024 1:47 PM
[2024-07-23 14:05] VITALS: RESP 20
[2024-07-23 14:25] VITALS: BP 176/77; PULSE 70; TEMP 98.3
== END 2024-07-23 14:25 | disposition home or self-care (01) ==
LOC: EC 11:46
CPT/HCPCS: 36415; 74176; 80053; 81001; 83605; 83690; 85025; 85610; 85730; 87077; 87086; 87186; 96361; 96374; 96375; 99284

== ENCOUNTER 2025-01-27 13:03 | Emergency (ER) | payer MEDICARE ==
[2025-01-27 13:25] VITALS: RESP 20
[2025-01-27 14:01] LABS: Appearance,Urine Cloudy (Clear); Bacteria,Urine Moderate /hpf; Bilirubin,Urine Negative (Negative); Blood,Urine Negative (Negative); Color,Urine Yellow; Glucose,Urine (UA) Negative (Negative); Ketones,Urine Negative (Negative); Leukocyte Esterase,Urine Large (Negative); Mucus,Urine Rare /hpf; Nitrite,Urine Positive (Negative); Protein,Urine 1+ (Negative); RBC,Urine 6 /hpf (0-5); Squamous Epithelial Cell,Urine 8 /hpf (0-4); Urobilinogen,Urine <2.0 mg/dL (<2.0); WBC,Urine 50 /hpf (0-5)
--- NOTE | 2025-01-27 14:19 | ED ---
General Adult HPI - General Chief complaint: Extremity Injury, Upper Stated complaint: Fall L Arm Pain Time Seen by Provider: 01/27/25 13:31 Source: patient, RN notes reviewed, old records reviewed Mode of arrival: ambulatory Limitations: no limitations - History of Present Illness Initial comments: 69-year-old female with chief complaint of left shoulder pain after a fall which occurred about a week ago. Patient states she tripped falling forward. There is no head or neck trauma. She has had previous issues with this shoulder in the past and had orthopedic surgery performed several years ago. Pain is worse with movement. No chest pain. No difficulty breathing. Second complaint is possibility of urinary tract infection. Patient states that she does not typically have symptoms and has history of recurrent UTI and is requesting urinalysis. - Related Data Home Medications Medication Instructions Recorded Confirmed Apixaban [Eliquis] 2.5 mg PO BID 10/06/22 01/27/23 Apremilast [Otezla] 30 mg PO DAILY 10/06/22 01/27/23 Ascorbic Acid [Vitamin C] 500 mg PO DAILY 10/06/22 01/27/23 Cholecalciferol [Vitamin D3 (25 50 mcg PO DAILY 10/06/22 01/27/23 Mcg = 1000 Iu)] Cranberry Fruit Extract [Cranberry] 8,400 mg PO DAILY 10/06/22 01/27/23 Cyanocobalamin (Vitamin B-12) 500 mcg PO DAILY 10/06/22 01/27/23 [Vitamin B-12] Ferrous Sulfate [Feosol] 325 mg PO DAILY 10/06/22 01/27/23 [place]-3/Dha/Epa/Fish Oil [Fish Oil 1 each PO DAILY 10/06/22 01/27/23 1,000 mg Softgel] PARoxetine [Paxil] 20 mg PO DAILY 10/06/22 01/27/23 Vit No.179/Iron/Folic 1 each PO DAILY 10/06/22 01/27/23 [ Tablet] Turmeric Root Extract [Turmeric] 500 mg PO DIRECTED 10/06/22 01/27/23 Zinc Gluconate [Zinc] 50 mg PO DAILY 10/06/22 01/27/23 carvediloL [Coreg] 12.5 mg PO BID 10/06/22 01/27/23 Acetaminophen [Tylenol Extra 500 mg PO DIRECTED PRN 01/27/23 01/27/23 Strength] Potassium Citrate [Potassium 20 meq PO TID 01/27/23 01/27/23 Citrate ER] Rosuvastatin Calcium 5 mg PO DAILY 01/27/23 01/27/23 Unk Pantoprazole 40 mg PO DAILY 01/27/23 01/27/23 Previous Rx's Medication Instructions Recorded HYDROcodone/APAP 7.5-325MG [[place] 1 tab PO Q6HR PRN #28 tab 02/02/23 7.5-325] HYDROcodone/APAP 5-325MG [[place] 1 tab PO Q6HR PRN #12 tab 07/23/24 5-325] Nitrofurantoin Monohyd/M-Cryst 100 mg PO Q12HR 7 Days #14 cap 07/23/24 [Macrobid] Nitrofurantoin Monohyd/M-Cryst 100 mg PO Q12HR #20 cap 01/27/25 [Macrobid] Allergies Allergy/AdvReac Type Severity Reaction Status Date / Time No Known Allergies Allergy Verified 01/27/25 13:25 Review of Systems ROS Statement: Those systems with pertinent positive or pertinent negative responses have been documented in the HPI. ROS Other: All systems not noted in ROS Statement are negative. Past Medical History Past Medical History: Atrial Fibrillation, Fibromyalgia, Hypertension, Rheumatoid Arthritis (RA) Additional Past Medical History / Comment(s): anemia-unknown cause-states following up with Dr Fan., A-fib diagnosed January 2022., hx of kidney infection with sepsis., kidney stone. History of Any Multi-Drug Resistant Organisms: ESBL Date of last positivie culture/infection: 07/23/24 MDRO Source:: urine Past Surgical History: Section, Hysterectomy, Joint Replacement Additional Past Surgical History / Comment(s): total right knee., endometriosis surgery x2 Past Anesthesia/Blood Transfusion Reactions: No Reported Reaction Past Psychological History: No Psychological Hx Reported Smoking Status: Former smoker Past Alcohol Use History: Occasional Past Drug Use History: None Reported - Past Family History Mother Family Medical History: Cancer Additional Family Medical History / Comment(s): lung cancer Father Family Medical History: Cancer Additional Family Medical History / Comment(s): prostate cancer General Exam Limitations: no limitations General appearance: alert, in no apparent distress Head exam: Present: atraumatic, normocephalic Eye exam: Present: normal appearance, PERRL ENT exam: Present: normal exam Neck exam: Present: normal inspection Respiratory exam: Present: normal lung sounds bilaterally. Absent: respiratory distress, wheezes Cardiovascular Exam: Present: regular rate, normal rhythm Extremities exam: Present: other (Pain with range of motion of the left shoulder, normal range at the elbow normal range at the wrist, distal pulses intact, normal back shoe operator strength.) Neurological exam: Present: alert, oriented X3, CN II-XII intact. Absent: motor sensory deficit Psychiatric exam: Present: normal affect, normal mood Course Vital Signs 01/27/25 13:22 Temperature 98.3 F Pulse Rate 84 Respiratory 20 Rate Blood Pressure 173/89 O2 Sat by Pulse 98 Oximetry Medical Decision Making - Medical Decision Making Was pt. sent in by a medical professional or institution (LEONORA Banda, POURED CONCRETE WALL TECHNICIAN, urgent care, hospital, or skilled nursing...) When possible be specific @ -No Did you speak to anyone other than the patient for history (EMS, parent, family, police, friend...)? What history was obtained from this source @ -No Did you review nursing and triage notes (agree or disagree)? Why? @ -I reviewed and agree with nursing and triage notes Were old charts reviewed (outside hosp., previous admission, EMS record, old EKG, old radiological studies, urgent care reports/EKG's, skilled nursing records)? Report findings @ -No old charts were reviewed Differential Musculoskeletal Muscular strain, contusion, ligament sprain, fracture, arthritis, septic arthritis, bursitis, cellulitis, muscle spasm, nerve compression, DVT, arterial occlusion, herpes zoster, electrolyte abnormality, tumor.... This is not meant to be in all inclusive list EKG interpreted by me (3pts min.). @ -As above X-rays interpreted by me (1pt min.). @ -X-ray of the left shoulder shows degenerative change without acute finding CT interpreted by me (1pt min.). @ -None done U/S interpreted by me (1pt. min.). @ -None done What testing was considered but not performed or refused? (CT, X-rays, U/S, labs)? Why? @ -None What meds were considered but not given or refused? Why? @ -None Did you discuss the management of the patient with other professionals (professionals i.e. , PA, POURED CONCRETE WALL TECHNICIAN, lab, RT, psych nurse, social media marketing manager, client delivery manager, teacher, chief knowledge officer, mental health case manager)? Give summary @ -No Was smoking cessation discussed for >3mins.? @ -No Was critical care preformed (if so, how long)? @ -No Were there social determinants of health that impacted care today? How? (Homelessness, low income, unemployed, alcoholism, drug addiction, transportation, low edu. Level, literacy, decrease access to med. care, [place] [facility], rehab)? @ -No Was there de-escalation of care discussed even if they declined (Discuss DNR or withdrawal of care, Hospice)? DNR status @ -No What co-morbidities impacted this encounter? (DM, HTN, Smoking, COPD, CAD, Cancer, CVA, ARF, Chemo, Hep., AIDS, mental health diagnosis, sleep apnea, morbid obesity)? @ -None Was patient admitted / discharged? Hospital course, mention meds given and route, prescriptions, significant lab abnormalities, going to OR and other pertinent info. @ -61-year-old female with left shoulder pain status post fall. EKG negative for dislocation or fracture, degenerative change. Secondary complaint was request for urinalysis although the patient does not have any symptoms she does have history of recurrent UTI. There is signs of infection and the patient will be started on Macrobid. She will follow-up with her orthopedic surgeon regarding her shoulder pain. Undiagnosed new problem with uncertain prognosis? @ -No Drug Therapy requiring intensive monitoring for toxicity (Heparin, Nitro, Insulin, Cardizem)? @ -No Were any procedures done? @ -No Diagnosis/symptom? @Acute on chronic shoulder pain Acute, or Chronic, or Acute on Chronic? @ -Acute on chronic Uncomplicated (without systemic symptoms) or Complicated (systemic symptoms)? @ -Default Side effects of treatment? @ -No Exacerbation, Progression, or Severe Exacerbation? @ -No Poses a threat to life or bodily function? How? (Chest pain, [place], [place], pneumonia, PE, COPD, DKA, ARF, appy, cholecystitis, CVA, Diverticulitis, Homicidal, Suicidal, threat to staff... and all critical care pts) @ -No - Lab Data Lab Results 01/27/25 Range/Units 13:43 Urine Color Yellow Urine Appearance Cloudy H (Clear) Urine pH 6.0 (5.0-8.0) Ur Specific [place] 1.030 (1.001-1.035) Urine Protein 1+ H (Negative) Urine Glucose (UA) Negative (Negative) Urine Ketones Negative (Negative) Urine Blood Negative (Negative) Urine Nitrite Positive H (Negative) Urine Bilirubin Negative (Negative) Urine Urobilinogen <2.0 (<2.0) mg/dL Ur Leukocyte Esterase Large H (Negative) Urine RBC 6 H (0-5) /hpf Urine WBC 50 H (0-5) /hpf Ur Squamous Epith Cells 8 H (0-4) /hpf Urine Bacteria Moderate H (None) /hpf Urine Mucus Rare H (None) /hpf Disposition Clinical Impression: Strain of shoulder Disposition: HOME SELF-CARE Condition: Fair Instructions (If sedation given, give patient instructions): Shoulder Sprain (ED) Prescriptions: Nitrofurantoin Monohyd/M-Cryst [Macrobid] 100 mg PO Q12HR #20 cap Is patient prescribed a controlled substance at d/c from ED?: No Referrals: Lalo Hawkins MD [Primary Care Provider] - 1-2 days Jason Mack DO [Doctor of Osteopathic Medicine] - 1-2 days Time of Disposition: 14:26
--- NOTE | 2025-01-27 14:20 | XR ---
EXAMINATION TYPE: XR shoulder complete LT DATE OF EXAM: 01/27/2025 1:55 PM COMPARISON: None CLINICAL INDICATION: Female, 69 years old with history of fall pain, pain TECHNIQUE: XR shoulder complete LT; examined in AP, internally rotated and scapular Y projections. FINDINGS: No evidence of acute osseous pathology, joint dislocation, or soft tissue swelling. The remaining po rtions of the visualized chest are unremarkable. Degeneration changes of the acromion, distal clavic le with osteophyte formation. There is osteophyte formation of the glenoid and humeral head. There is joint space narrowing of glenohumeral joint. IMPRESSION: 1. No acute osseous pathology. 2. Moderate shoulder osteoarthrosis. [facility], , 01/27/2025 2:18 PM
[2025-01-27] MEDS: DEXAMETHASONE SOD PHOSPHATE 10 MG/ML 1 ML VIAL IM STA (14:28)
[2025-01-27 15:02] VITALS: BP 150/76; PULSE 80; TEMP 98.2
== END 2025-01-27 15:02 | disposition home or self-care (01) ==
LOC: EC 13:03
DX: S46.912A Strain of unspecified muscle, fascia and tendon at shoulder and upper arm level, left arm, initial encounter (principal); G89.29 Other chronic pain; Z87.891 Personal history of nicotine dependence; W01.0XXA Fall on same level from slipping, tripping and stumbling without subsequent striking against object, initial encounter
CPT/HCPCS: 81001; 87086; 73030; 99283; 96372; J1100